=== PATIENT | female | born 1955 | race Caucasian/White ===

== ENCOUNTER → 2021-09-24 08:51 | Outpatient (CLI) | payer BC, SELFPAY ==
--- NOTE | ~2021-09-24 | XR_ITS ---
EXAMINATION: XR knee RT 3V EXAM DATE: 09/24/2021 09:16 INDICATION: Right knee pain. TECHNIQUE: Three projections of the right knee. There is no prior study for comparison. FINDINGS: There is moderate right knee patellofemoral and medial tibiofemoral compartment primary ost eoarthritis. Small to moderate joint effusion. There are no acute fractures identified. No radiopaqu e foreign bodies identified. IMPRESSION: 1. Moderate right knee osteoarthritis. 2. Small to moderate joint effusion. Reviewed, dictated and finalized at location B. SORTER
--- NOTE | ~2021-09-24 | XR_ITS ---
EXAMINATION: XR knee LT 3V DATE: 09/24/2021 09:16 INDICATION: Bilateral knee pain TECHNIQUE: 1. Weight bearing anteroposterior, sunrise, and flexed lateral views of the left knee were obtained. 2. Weight bearing anteroposterior, sunrise, and flexed lateral views of the right knee were obtained. COMPARISON: None. FINDINGS: Left knee: Alignment is normal. No fracture. Mild joint space narrowing in the medial compartment. Small left k nee joint effusion. Soft tissues are unremarkable. Right knee: Alignment is normal. No fracture. Moderate to severe joint space narrowing in the medial compartment . Small right knee joint effusion. Soft tissues are unremarkable. IMPRESSION: 1. Medial compartment osteoarthritis of both knees, mild on the left and moderate to severe on the ri ght Reviewed, dictated and finalized at location A. [employer] IMPRESSION: 1. Medial compartment osteoarthritis of both knees, mild on the left and modera te to severe on the right
== END ==
PROVIDERS: PCP Family Medicine; Visit Provider Family Medicine
DX: M17.0 Bilateral primary osteoarthritis of knee (principal); M25.461 Effusion, right knee
CPT/HCPCS: 73562